=== PATIENT | male | born 1980 | race Caucasian/White ===

== ENCOUNTER 2019-04-19 22:03 | Emergency (ER) | payer MEDICAID, SELFPAY ==
[2019-04-19 22:03] VITALS: BP 136/86; PULSE 88; RESP 15; TEMP 37; BMI 24.4
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
--- NOTE | 2019-04-19 22:28 | RAD_ITS ---
STUDY: X-RAY - RIGHT HAND REASON FOR EXAM: Male, 38 years old. Trauma. TECHNIQUE: 3 view(s) of the hand. COMPARISON: None. FINDINGS: Acute angulated nondisplaced fracture through the distal fifth metacarpal shaft. No other acute abnormalities. Deformity of the proximal fourth metacarpal consistent with previous healed fracture. Normal radiocarpal articulation. Normal distal radioulnar joint. Normal visualized carpal bones. Normal carpal articulations Normal carpometacarpal articulation of the thumb. Normal second through fifth carpometacarpal joints. Normal metacarpophalangeal joint of the thumb. Normal interphalangeal joint of the thumb. Normal proximal and distal phalanges of the thumb. Normal metacarpophalangeal joints of the second through fifth fingers. Normal proximal and distal interphalangeal joints of the second through fifth fingers. Normal phalanges of the second through fifth fingers. The soft tissue structures are unremarkable. RAD/Hand Min 3 Views IMPRESSION: Angulated nondisplaced fracture of the distal fifth metacarpal shaft. Electronically Signed: Jm Gilbert MD at 22:42 EDT , Service support ,
[2019-04-19] MEDS: Ibuprofen 600 MG Tablet PO (22:33)
--- NOTE | 2019-04-19 22:48 | ED.DEP ---
ED Disposition - Plan for ED Patient: Disposition: Home or Assisted Living Instructions: FRACTURE, Boxer's Prescriptions: Ibuprofen [Ibu] 600 mg PO 4X/DAY PRN PRN #60 tab PRN Reason: Pain Prescription Printed Referrals: Care Physician,No Primary [Primary Care Provider] - Ashley Willoughby DO [STAFF PHYSICIAN] -
[2019-04-19 22:59] VITALS: BP 127/81; PULSE 83; RESP 12; O2SAT 99
== END 2019-04-19 23:00 | disposition home or self-care (01) ==
PROVIDERS: Emergency Provider Emergency Medicine
DX: S62.306A Unspecified fracture of fifth metacarpal bone, right hand, initial encounter for closed fracture (principal); W22.01XA Walked into wall, initial encounter; Y93.9 Activity, unspecified; Y92.9 Unspecified place or not applicable; Z72.0 Tobacco use
CPT/HCPCS: 29125; 73130; 99282

== ENCOUNTER → 2019-06-05 13:46 | Outpatient (CLI) | payer SELFPAY ==
[2019-06-03 07:57] VITALS: BMI 24.4
--- NOTE | 2019-06-05 13:48 | RAD_ITS ---
STUDY: X-RAY - RIGHT HAND REASON FOR EXAM: Male, 38 years old. Fracture TECHNIQUE: 3 view(s) of the hand. COMPARISON: April 19, 2019 FINDINGS: Significant deformity of the fourth metacarpal bone secondary to a healed fracture involving the proximal shaft of the fourth metacarpal. A healing slightly angulated fracture involving the neck of the fifth metacarpal bone with a gap of 1.9 mm between the bony fragments.. The rest of the bones of the hand are normal. . RAD/Hand Min 3 Views IMPRESSION: A deformity of the fourth metacarpal bone secondary to the healed fracture in the proximal shaft of the bone. A healing nonunited fracture involving the neck of the fifth metacarpal bone Electronically Signed: Dale Santoro MD at 6:29 EDT Tel , Service support ,
== END ==
LOC: HPRAD 13:47
PROVIDERS: Referring Provider Orthopaedic Surgery; Visit Provider Orthopaedic Surgery
DX: S62.331A Displaced fracture of neck of second metacarpal bone, left hand, initial encounter for closed fracture (principal)
CPT/HCPCS: 73130

== ENCOUNTER 2023-10-10 07:07 | Emergency (ER) | payer OTHER, SELFPAY ==
[2023-10-10 07:08] VITALS: BP 139/66; PULSE 68; RESP 16; TEMP 35.8; O2SAT 98; BMI 28.9
--- NOTE | 2023-10-10 07:27 | EX.ED.UPPERE ---
HPI History of Present Illness Chief Complaint: Upper Extremity Injury Narrative Narrative: 43-year-old male presenting with right axillary pain. He states he was using his work equipment and he was holding the wheel which is actually a break which increases in pressure. While holding this he felt a pop in his right axilla. He states he has pain with most range of motion in the right axilla with right shoulder. It is worse when he tries to pull with his right hand or push with his right hand against resistance. He does not have any deltoid pain or tenderness over the right shoulder girdle. No tenderness over the scapula. There is no bruising or swelling noted. PFSH PFSH Home Medications acetaminophen 500 mg tablet (Tylenol Extra Strength) 1,000 mg PO Q6H PRN 04/24/19 [History Last Taken Unknown] ibuprofen 600 mg tablet 600 mg PO TID PRN pain 04/24/19 [History Last Taken Unknown] Allergy/AdvReac Type Severity Reaction Status Date / Time No Known Allergies Allergy Verified 04/19/19 22:06 Social History Smoking Status: Current every day smoker ROS ROS ED Constitutional Constitutional ED: Denies chills, fever(s) or sweats Eyes Eyes: Denies blurry vision or change in vision ENT ENT ED: Denies ear pain or sore throat Cardiovascular Cardiovascular: Reports other Details: Right upper chest wall pain/axillary pain ; Denies chest pain, palpitations or racing heartbeat Respiratory/Chest Respiratory/Chest: Denies cough, dyspnea or sputum Gastrointestinal Gastrointestinal: Denies abdominal pain, constipation, diarrhea, nausea or vomiting Genitourinary Genitourinary ED: Denies dysuria, hematuria or urinary frequency Musculoskeletal Musculoskeletal: Denies arthralgias, myalgias or neck pain Integumentary Denies abscess, Abrasions or rash Neurologic Neurologic: Denies headache(s), paresthesias or weakness Psychiatric Psychiatric: Denies anxiety, depression, suicidal ideation or suicidal thoughts Endocrine Endocrinology: Denies polydipsia or polyuria EXAM Physical Exam Const Vital Signs: 10/10/23 07:08 Temperature 96.5 F L Temperature Source Temporal Pulse Rate 68 Respiratory Rate 16 Blood Pressure 139/66 H Blood Pressure Mean 90 Pulse Ox 98 Oxygen Delivery Method Room Air Positive well nourished General Appearance ED: NAD HEENT Reports moist mucous membranes normocephalic and atraumatic Eyes PERRL and EOMs intact bilaterally Chest Wall Chest Narrative: Tenderness to palpation right upper chest wall and in the right axilla. There is pain elicited with abduction against resistance and abduction against resistance. Is also pain elicited in flexion and extension of the right shoulder. The pain is all localized to the axilla and right chest wall. No crepitance. No bruising. Resp normal respiratory effort Cardio regular rate and regular rhythm Neuro oriented x3 and CN's II-XII intact bilaterally Sensorium / Orientation: alert Psych mental status grossly normal MDM MDM MDM Narrative Medical decision making narrative: Patient presenting with pain in the right upper chest wall/axilla. I suspect he is a muscle tear which is likely differential includes pectoralis major tear, pectoralis minor tear, muscle strain. Images of the right shoulder and right rib series was obtained to rule out any acute fracture/avulsion fracture. Patient offered analgesia but states he only wants NSAIDs. He is given Naprosyn. X-rays of the right shoulder and right rib series on my interpretation showed no acute process. Radiology interprets this and agrees. Attempted to discuss with orthopedics on-call however there was delay in care as it took about an hour for the return my call. Apparently prescribed in the OR. I spoke with the nurse for Dr. Parks who relayed the information to Dr. Brennan and he recommended follow up in the office and we will need an MRI. Patient given work restrictions. Impression: 1. Pectoralis tear right Lab Data Attestation: I reviewed the patient's lab results. Discharge Plan Triage Chief Complaint: Upper Extremity Injury ED Provider: Dorian Christie Dx/Rx/DC Orders Instructions: ED Muscle Strain, Extremity Prescriptions: No Action ibuprofen 600 mg tablet 600 mg PO TID PRN (Reason: pain) Rx Instructions: May have 600mg PO TID as needed for 3 weeks. acetaminophen [Tylenol Extra Strength] 500 mg tablet 1,000 mg PO Q6H PRN Rx Instructions: May take 1000mg QID as needed for pain x3 weeks. Primary Care Provider: Care Physician,No Primary Referrals: Jordan Brennan DO [Med Staff - Active Staff] - 3-5 Days Care Physician,No Primary [Primary Care Provider] - Activity Restrictions/Additional Instructions: I believe you have a pectoralis major/minor muscle tear on the right. I gave the work restrictions to limit repetitive range of motion and heavy lifting. I spoke with Dr. Brennan who will follow-up with you as an outpatient. He is recommending MRI in the future. Disposition Disposition: Home, Self Care Capacity Legal Chief Knowledge Officer Reflex Medical hold order details:: IF a medical hold is selected below, a suggested order for a MEDICAL HOLD will reflex upon signing the document. Next of kin: [place] law dictates a PRIORITY LIST for identifying legal decision-maker/legal next of kin in the following order (LNOK): 1st: The patient?s legal guardian, if any 2nd: The patient's spouse (if status is questionable, consult Risk Management) 3rd: The patient?s adult child(phillip) (majority, if multiple children) 4th: The patient?s parents 5th: The patient?s adult siblings (majority, if multiple children siblings)
--- NOTE | 2023-10-10 07:45 | RAD_ITS ---
STUDY: X-RAY - UNILATERAL RIBS ( RIGHT ) WITH CHEST REASON FOR EXAM: Male, 43 years old. Pain. TECHNIQUE - RIBS: 4 views of the right ribs. TECHNIQUE - CHEST: Single PA view of the chest. COMPARISON: None. FINDINGS - RIBS: Normal visualized right ribs without a demonstrated fracture. FINDINGS - CHEST: The lungs are clear and expanded. There is no demonstrated pleural abnormality. Normal size heart. Normal mediastinum and luis. Normal visualized pulmonary arteries. Normal visualized aortic arch and descending thoracic aorta. Normal visualized thoracic spine. Normal visualized ribs, clavicles, and shoulders. There is no demonstrated abnormality of the visualized soft tissue structures of the upper abdomen. RAD/Ribs Uni Min 3V w/PA Chest IMPRESSION: RIBS: Normal x-ray examination of the right ribs. CHEST: Normal x-ray examination of the chest. Electronically Signed: Dandre Darden MD at 8:10 EST ,
--- NOTE | 2023-10-10 07:45 | RAD_ITS ---
STUDY: X-RAY - RIGHT SHOULDER REASON FOR EXAM: Male, 43 years old. Pain. TECHNIQUE: 4 views of the right shoulder. COMPARISON: None. FINDINGS: Normal glenohumeral articulation. There is minimal acromioclavicular arthrosis. Normal acromion. Normal humeral head and visualized proximal humerus. The soft tissue structures are unremarkable. There is no demonstrated fracture. Normal visualized pulmonary apex. RAD/Shoulder min 2 Views IMPRESSION: Minimal acromioclavicular arthrosis. Electronically Signed: Dandre Darden MD at 8:13 EST ,
--- OUTSIDE RECORDS SUMMARY | 2023-10-10 07:51 | XMS RPT_ITS | CCD ---
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 Role Phone Unavailable Primary Care Provider Unavailabl e Results Test Name Value Interpretation Reference Range Facil ity Encounters Encounter Date Encounter Type Care Provider Facility Start: 10-03-2021 End: 10-03-2021 Subsequent hospital visit by physician Horacio DEL VALLE Social History Date Type Detail Facility Tobacco smoking stat [facility] Tobacco smoking consumption unknown [facility] Start: 1980 Sex Assigned At Not on file [facility] Summary Purpose Family History No Family History Records Found Advance Directives No Advanced Directives Records Found Additional Source Comments Source Comments (unrecognize d section and content) In the event this informatio n is protected by the Federal Confidentiality of Alcohol and Drug Abuse Patient Records regulations: The Federal rules restrict any use of the information to criminally investigate or prosecute any alcohol or drug abuse patient.[facility] (unrecognized sect ion and content) No Status Records Found INFORMATION SOURCE (unrecogn ized section and content) FOR RECORDS PERTAINING TO PATIENTS WHO ARE OR HAVE BEEN ENROLLED IN A CHEMICAL DEPENDENCY/SUBSTANCEABUSE PROGRAM, SOME INFORMATION MAY BE OMITTED. This clinical summary was aggregated from multiple sources. Caution should be exercised in using it in the provision of clinical care. This summary normalizes information from multiple sources, and as a consequence, information in this document may materially change the coding, format and clinical context of patient data. In addition, data may be omitted in some cases. CLINICAL DECISIONS SHOULD BE BASED ON THE PRIMARY CLINICAL RECORDS. [facility] [employer] [facility]. provides no warranty or guarantee of the accuracy or completeness of information in this document.
[2023-10-10] MEDS: Naproxen 500 MG Tablet PO (08:05)
[2023-10-10 10:09] VITALS: BP 126/78; PULSE 64; RESP 14; TEMP 36.3; O2SAT 99
== END 2023-10-10 10:09 | disposition home or self-care (01) ==
PROVIDERS: Emergency Provider Student in an Organized Health Care Education/Training Program; Visit Provider Student in an Organized Health Care Education/Training Program
DX: S29.011A Strain of muscle and tendon of front wall of thorax, initial encounter (principal); M79.621 Pain in right upper arm; X58.XXXA Exposure to other specified factors, initial encounter; Y99.0 Civilian activity done for income or pay; F17.200 Nicotine dependence, unspecified, uncomplicated
CPT/HCPCS: 71101; 73030; 99282

== ENCOUNTER 2024-03-06 06:01 | Emergency (ER) | payer OTHER, SELFPAY ==
[2024-03-06 06:02] VITALS: BP 128/86; PULSE 66; RESP 17; TEMP 36.2; O2SAT 98
[2024-03-06] MEDS: Lidocaine 2% /Epi 1:100 (20ml) 20 ML VIAL INFILT (06:30)
--- NOTE | 2024-03-06 06:51 | EX.ED.DYSGE1 ---
HPI History of Present Illness Chief Complaint: Laceration Informant: patient Narrative Narrative: Patient is a [id number] male who was at work this morning roughly 30 minutes to 1 hour prior to arrival. He states he was walking around to his workstation when there was a piece of metal sticking out and it caught his left hand. He states he sustained a laceration. He denies any history of bleeding disorder or blood thinner use. He states despite holding pressure the wound would not stop bleeding and therefore he felt he may need sutures. He denies any numbness tingling or weakness. He states that his tetanus was updated 1 year ago. [facility] Home Medications ?Medication ?Instructions ?Recorded ?Last Taken ?Type acetaminophen 500 mg tablet 1,000 mg PO Q6H PRN 04/24/19 Unknown History (Tylenol Extra Strength) ibuprofen 600 mg tablet 600 mg PO TID PRN pain 04/24/19 Unknown History Allergy/AdvReac Type Severity Reaction Status Date / Time No Known Allergies Allergy Verified 04/19/19 22:06 Social History Smoking Status: Current every day smoker tobacco type: cigarettes and e-cigarettes ROS ROS ED Constitutional Constitutional ED: Denies chills or fever(s) ENT ENT ED: Denies sore throat Cardiovascular Cardiovascular: Denies chest pain Respiratory/Chest Respiratory/Chest: Denies cough or dyspnea Gastrointestinal Gastrointestinal: Denies abdominal pain, diarrhea, nausea or vomiting Genitourinary Genitourinary ED: Denies dysuria Musculoskeletal Musculoskeletal: Denies myalgias Integumentary Reports other Details: Positive left hand laceration Neurologic Neurologic: Denies headache(s), paresthesias or weakness Hematologic/Lymphatic Hematologic/Lymphatic: Denies easy bleeding or easy bruising EXAM Physical Exam Const Vital Signs: 03/06/24 06:02 Temperature 97.1 F L Temperature Source Temporal Pulse Rate 66 Respiratory Rate 17 Blood Pressure 128/86 H Blood Pressure Mean 100 Pulse Ox 98 Oxygen Delivery Method Room Air Positive well nourished and well developed General Appearance ED: well developed HEENT HEENT Narrative: Normocephalic atraumatic Eyes PERRL and EOMs intact bilaterally General Eye ED: Negative for scleral icterus Neck supple Resp normal respiratory effort and clear to auscultation bilaterally Cardio regular rate and regular rhythm Extremity Extremity Narrative: Left upper extremity is neurovascularly intact; AIN/PIN are intact and normal. Patient has full active range of motion. No ligamentous or tendon injury noted. There is a linear 1.5 cm laceration that is subcutaneous layer deep to the dorsal aspect of the left hand over top of the 3rd-4th metacarpal. No retained foreign body noted. There is minimal ooze of blood present. Remainder of the exam is normal Neuro oriented x3, CN's II-XII intact bilaterally and no sensory deficits noted Sensorium / Orientation: alert Motor Exam: strength 5/5 throughout Psych mental status grossly normal Skin Skin Narrative: Laceration to left hand as documented above MDM MDM MDM Narrative Medical decision making narrative: Patient presented to ER with stable vitals and reported a simple laceration that occurred roughly 1 hour prior to arrival. His physical exam shows no signs of ligamentous or tendon injury and there is no retained foreign body so there was no report of crush injury so I do not feel there is need for x-ray. His tetanus status is currently up-to-date and therefore there is no need to provide this either. Therefore at this time as the patient has a simple laceration without ligamentous tendon or bony injury there is no need for intervention other than closure which was performed as documented below. As wound is overall clean and do not feel there is need for prophylactic antibiotics. Patient's wound/hand was cleaned with chlorhexidine. The area was anesthetized using 3 mL of 2% lidocaine with epinephrine and local fashion. The wound was copiously irrigated with normal saline. The patient had four 4-0 Ethilon sutures placed in simple operative fashion which brought the wound together good approximation. Patient tolerated the procedure well without complication. History & Record Review Discussion w/independent historian: Patient Discharge Plan Triage Chief Complaint: Laceration ED Provider: Nilton Justice Dx/Rx/DC Orders Clinical Impression: Laceration of hand, left Instructions: ED Laceration, Hand: All Closures Prescriptions: No Action ibuprofen 600 mg tablet 600 mg PO TID PRN (Reason: pain) Rx Instructions: May have 600mg PO TID as needed for 3 weeks. acetaminophen [Tylenol Extra Strength] 500 mg tablet 1,000 mg PO Q6H PRN Rx Instructions: May take 1000mg QID as needed for pain x3 weeks. Primary Care Provider: Care Physician,No Primary Referrals: Corporate,Care [Group of Physicians] - Care Physician,No Primary [Primary Care Provider] - Activity Restrictions/Additional Instructions: Please follow-up with Workmen's Comp. for repeat evaluation and see them or your family doctor or the ER in 7 to 10 days for suture removal. Print Language: British Disposition Disposition: Home, Self Care
== END 2024-03-06 07:03 | disposition home or self-care (01) ==
PROVIDERS: Emergency Provider Emergency Medicine; Visit Provider Emergency Medicine
DX: S61.412A Laceration without foreign body of left hand, initial encounter (principal); W26.8XXA Contact with other sharp object(s), not elsewhere classified, initial encounter; Y93.01 Activity, walking, marching and hiking; Y99.0 Civilian activity done for income or pay; F17.210 Nicotine dependence, cigarettes, uncomplicated; F17.290 Nicotine dependence, other tobacco product, uncomplicated
CPT/HCPCS: 12001; 99284